=== PATIENT | male | born 1985 | race Caucasian/White ===

== ENCOUNTER 2019-09-16 17:49 | Observation (INO) | payer OTHER ==
[2019-09-16 20:35] LABS: Urine Blood NEGATIVE (NEG); Urine Glucose NEGATIVE (NEG); Urine Protein NEGATIVE (NEG); Urine pH 5.5 (5.0-7.0)
[2019-09-16 20:41] LABS: Absolute Lymphocytes (CBC) 2.7 K/uL (0.7-4.9); Basophils % 0.5 % (0-1.3); Hematocrit 45.3 % (39.6-49.0); Lymphocytes % 30.8 % (15.3-44.8); MPV 8.4 fL (7.6-11.3); RBC Red Blood Cell Count 5.47 M/uL (4.33-5.43)
[2019-09-16 20:57] LABS: ALT/SGPT 49 U/L (12-78); AST/SGOT 18 U/L (15-37); Albumin 3.8 g/dL (3.4-5.0); Alkaline Phosphatase 96 U/L (45-117); BUN Blood Urea Nitrogen 10 mg/dL (7-18); Bicarbonate 26 mmol/L (21-32); Bilirubin Direct < 0.1 mg/dL (0-0.2); Bilirubin Total 0.2 mg/dL (0.2-1.0); Glucose Level 87 mg/dL (74-106); Lipase 139 U/L (73-393); Protein, Total 7.3 g/dL (6.4-8.2); Sodium Level 140 mmol/L (136-145)
--- NOTE | 2019-09-16 22:38 | ER ---
Nurse's Notes [facility] Name: Alin Bonilla Age: 34 yrs Sex: Male : 1985 Arrival Date: 09/16/2019 Time: 17:53 Bed 5 Private MD: Diagnosis: Acute appendicitis with localized peritonitis Presentation: 09/16 18:04 Presenting complaint: Patient states: Abdominal pain since 5 days ago. More on the RLQ. ca1 Denies N/V,Urinary symptoms. Had diarrhea on Monday but went away. Denies fever. Transition of care: patient was not received from another setting of care. Onset of symptoms was September 16, 2019. Risk Assessment: Do you want to hurt yourself or someone else? Patient reports no desire to harm self or others. Initial Sepsis Screen: Does the patient meet any 2 criteria? No. Patient's initial sepsis screen is negative. Does the patient have a suspected source of infection? No. Patient's initial sepsis screen is negative. Care prior to arrival: None. 18:04 Method Of Arrival: Ambulatory ca1 18:04 Acuity: SVETLANA 3 ca1 Historical: - Allergies: 18:07 No Known Allergies; ca1 - Home Meds: 18:07 None [Active]; ca1 - PMHx: 18:07 None; ca1 - PSHx: 18:07 L wrist; ca1 - Immunization history:: Adult Immunizations not up to date, Flu vaccine is not up to date. - Coronavirus screen:: The patient has NOT traveled to [place], [place], or [place] in the past 14 days. The patient has NOT had contact with known/suspected case of Coronavirus?. - Social history:: Smoking status: Patient reports the use of cigarette tobacco products, smokes one-half pack cigarettes per day. - Ebola Screening: : Patient negative for fever greater than or equal to 101.5 degrees Fahrenheit, and additional compatible Ebola Virus Disease symptoms Patient denies exposure to infectious person Patient denies travel to an Ebola-affected area in the 21 days before illness onset No symptoms or risks identified at this time. Screenin:30 Abuse screen: Denies threats or abuse. Denies injuries from another. Nutritional aa1 screening: No deficits noted. Tuberculosis screening: No symptoms or risk factors identified. Fall Risk None identified. Assessment: 20:30 General: Appears in no apparent distress. comfortable, Behavior is calm, cooperative, aa1 appropriate for age. Pain: Complains of pain in right lower quadrant Pain began 5 days ago Is intermittent. Neuro: Level of Consciousness is awake, alert, obeys commands, Oriented to person, place, time, situation, Moves all extremities. Full function Gait is steady, Speech is normal. Cardiovascular: Heart tones S1 S2 present Rhythm is regular. Respiratory: Airway is patent Respiratory effort is even, unlabored, Respiratory pattern is regular, symmetrical. GI: Abdomen is non-distended, Bowel sounds present X 4 quads. Abd is soft X 4 quads Abdomen is tender to palpation in right lower quadrant Reports diarrhea. : No signs and/or symptoms were reported regarding the genitourinary system. EENT: No signs and/or symptoms were reported regarding the EENT system. Derm: Skin is intact, is healthy with good turgor, Skin is pink, warm \T\ dry. Musculoskeletal: Circulation, motion, and sensation intact. Capillary refill < 3 seconds. 21:40 Reassessment: Patient appears in no apparent distress at this time. Patient and/or aa1 family updated on plan of care and expected duration. Pain level reassessed. Patient is alert, oriented x 3, equal unlabored respirations, skin warm/dry/pink. Awaiting CT results. 22:30 Reassessment: Patient appears in no apparent distress at this time. Patient and/or aa1 family updated on plan of care and expected duration. Pain level reassessed. Patient is alert, oriented x 3, equal unlabored respirations, skin warm/dry/pink. Awaiting provider reassessment. 23:38 Reassessment: Patient appears in no apparent distress at this time. Patient and/or aa1 family updated on plan of care and expected duration. Pain level reassessed. Patient is alert, oriented x 3, equal unlabored respirations, skin warm/dry/pink. Pt to be admitted to room 411. Report called to GUILLERMO Vinson on 4th floor. 23:58 Reassessment: Patient appears in no apparent distress at this time. Patient is alert, aa1 oriented x 3, equal unlabored respirations, skin warm/dry/pink. Pt to be admitted at this time. Vital Signs: 18:07 BP 146 / 79; Pulse 91; Resp 19 S; Temp 98.6(O); Pulse Ox 97% on R/A; Weight 122.47 kg ca1 (R); Height 6 ft. 4 in. (193.04 cm) (R); Pain 3/10; 20:53 BP 126 / 80; Pulse 79; Resp 18; Pulse Ox 97% on R/A; Pain 3/10; aa1 21:40 BP 133 / 79; Pulse 70; Resp 16; Pulse Ox 95% on R/A; aa1 22:30 BP 127 / 84; Pulse 70; Resp 16; Pulse Ox 96% on R/A; Pain 3/10; aa1 23:30 BP 132 / 69; Pulse 75; Resp 18; Temp 98.4; Pulse Ox 96% on R/A; Pain 3/10; aa1 18:07 Body Mass Index 32.87 (122.47 kg, 193.04 cm) ca1 ED Course: 17:53 Patient arrived in ED. rg4 18:06 Triage completed. ca1 18:07 Arm band placed on right wrist. ca1 19:26 Tyree Montiel MD is Attending Physician. tw4 20:15 Fátima Davis, GUILLERMO is Primary Nurse. aa1 20:30 Patient has correct armband on for positive identification. Placed in gown. Bed in low aa1 position. Call light in reach. Pulse ox on. NIBP on. 20:31 Inserted saline lock: 20 gauge in right forearm, using aseptic technique. Blood mt collected. 22:36 Arturo Gary MD is Hospitalizing Provider. tw4 23:32 No provider procedures requiring assistance completed. Patient admitted, IV remains in aa1 place. Administered Medications: 09/17 00:11 CANCELLED (pt already transported to 4th floor; to be given upstairs): Zosyn 3.375 aa1 grams IVPB once over 60 mins; (mix in NS 100 mL) Outcome: 09/16 22:37 Decision to Hospitalize by Provider. tw4 23:58 Admitted to Med/surg accompanied by tech, family with patient, via wheelchair, room aa1 411, with chart, Report called to GUILLERMO Vinson 23:58 Condition: good 23:58 Instructed on the need for admit, Demonstrated understanding of instructions. 23:58 Patient left the ED. aa1 Signatures: Fátima Davis RN RN aa1 Valencia Pena rg4 Nelia Palacios mt, Terrence, MD MD tw4 Kathleen Carias RN RN ca1 Corrections: (The following items were deleted from the chart) 21:50 Initial lab(s) drawn, by ED staff, sent to lab. aa1 21:50 EKG done, by ED staff, reviewed by Tyree Montiel MD aa1 aa 21:40 Reassessment: Patient appears in no apparent distress at this time. Patient aa1 and/or family updated on plan of care and expected duration. Pain level reassessed. Patient is alert/active/playful, equal unlabored respirations, skin warm/dry/pink. Awaiting CT results aa1 22:30 Reassessment: Patient appears in no apparent distress at this time. Patient aa1 and/or family updated on plan of care and expected duration. Pain level reassessed. Patient is alert/active/playful, equal unlabored respirations, skin warm/dry/pink. Awaiting provider reassessment aa1 09/17 00:12 00:12 Patient left the ED. aa1 aa1
--- NOTE | 2019-09-16 22:38 | EDPHYS ---
Physician Documentation [facility] Name: Alin Bonilla Age: 34 yrs Sex: Male : 1985 Arrival Date: 09/16/2019 Time: 17:53 Bed 5 Private MD: ED Physician Tyree Montiel HPI: 09/17 04:32 This 34 yrs old Male presents to ER via Ambulatory with complaints of tw4 Abdominal Pain. 04:32 The patient presents with abdominal pain. tw4 Historical: - Allergies: 09/16 18:07 No Known Allergies; ca1 - Home Meds: 18:07 None [Active]; ca1 - PMHx: 18:07 None; ca1 - PSHx: 18:07 L wrist; ca1 - Immunization history:: Adult Immunizations not up to date, Flu vaccine is not up to date. - Coronavirus screen:: The patient has NOT traveled to [place], [place], or [place] in the past 14 days. The patient has NOT had contact with known/suspected case of Coronavirus?. - Social history:: Smoking status: Patient reports the use of cigarette tobacco products, smokes one-half pack cigarettes per day. - Ebola Screening: : Patient negative for fever greater than or equal to 101.5 degrees Fahrenheit, and additional compatible Ebola Virus Disease symptoms Patient denies exposure to infectious person Patient denies travel to an Ebola-affected area in the 21 days before illness onset No symptoms or risks identified at this time. Vital Signs: 18:07 BP 146 / 79; Pulse 91; Resp 19 S; Temp 98.6(O); Pulse Ox 97% on R/A; Weight 122.47 kg ca1 (R); Height 6 ft. 4 in. (193.04 cm) (R); Pain 3/10; 20:53 BP 126 / 80; Pulse 79; Resp 18; Pulse Ox 97% on R/A; Pain 3/10; aa1 21:40 BP 133 / 79; Pulse 70; Resp 16; Pulse Ox 95% on R/A; aa1 22:30 BP 127 / 84; Pulse 70; Resp 16; Pulse Ox 96% on R/A; Pain 3/10; aa1 23:30 BP 132 / 69; Pulse 75; Resp 18; Temp 98.4; Pulse Ox 96% on R/A; Pain 3/10; aa1 18:07 Body Mass Index 32.87 (122.47 kg, 193.04 cm) ca1 MDM: 20:29 Patient medically screened. tw4 09/16 20:25 Order name: Urine Dipstick--Ancillary (enter results) mw2 09/16 20:35 Order name: Urine Dipstick-Ancillary EDNY 09/16 20:36 Order name: CT Abd/Pelvis - IV Contrast Only tw4 09/16 20:45 Order name: CBC with Automated Diff EDMS 09/16 20:53 Order name: Creatinine (Radiology Only) EDMS 09/16 20:57 Order name: Basic Metabolic Panel EDMS 09/16 20:57 Order name: Liver (Hepatic) Function EDMS 09/16 20:57 Order name: Lipase EDMS 09/16 19:26 Order name: IV Saline Lock; Complete Time: 20:31 tw4 09/16 19:26 Order name: Labs collected and sent; Complete Time: 20:31 tw4 Administered Medications: 09/17 00:11 CANCELLED (pt already transported to 4th floor; to be given upstairs): Zosyn 3.375 aa1 grams IVPB once over 60 mins; (mix in NS 100 mL) Disposition: 09/16/19 22:37 Hospitalization ordered by Arturo Gary for Inpatient Admission. Preliminary diagnosis is Acute appendicitis with localized peritonitis. - Bed requested for Telemetry/MedSurg (Inpatient). - Status is Inpatient Admission. aa1 - Condition is Stable. - Problem is new. - Symptoms have improved. Signatures: [facility] Fátima Davis RN RN aa1 Juliann Pena RN RN Tyree Montiel MD MD tw4 Kathleen Carias RN RN ca1 Corrections: (The following items were deleted from the chart) 09/16 23:22 22:37 Hospitalization Ordered by Arturo Gary MD for Inpatient Admission. Preliminary diagnosis is Acute appendicitis with localized peritonitis. Bed requested for Telemetry/MedSurg (Inpatient). Status is Inpatient Admission. Condition is Stable. Problem is new. Symptoms have improved. tw4 09/17 00:11 00:01 Zosyn 3.375 grams IVPB once over 60 mins; (mix in NS 100 mL) ordered. tw4 aa1 00:12 09/16 23:22 09/16/2019 22:37 Hospitalization Ordered by Arturo Gary MD for Inpatient aa1 Admission. Preliminary diagnosis is Acute appendicitis with localized peritonitis. Bed requested for Telemetry/MedSurg (Inpatient). Status is Inpatient Admission. Condition is Stable. Problem is new. Symptoms have improved. cg
[2019-09-16] MEDS ORDERED: MORPHINE 4 MG/ML SYR IV PRN (23:04)
[2019-09-16] MEDS ORDERED: NA CHLORIDE 0.9% 1,000 ML IV SCH (23:45)
[2019-09-17 00:23] VITALS: BMI 33.7
--- NOTE | 2019-09-17 06:53 | P.HP ---
Date of Service: 09/17/19 PC: This 34-year-old male presented to the emergency room with severe right lower quadrant abdominal pain for diagnosis and treatment. HPC: Patient has been experiencing pain in his lower abdomen since last . Pain was gradual but he has got to the point were he could no longer stand it. Her story tries to walk. PMH: Negative PSHx: Negative SOC: No known allergies SYS REVIEW: No cough, wheeze, shortness of breath. No chest pain or palpitations. No urinary complaints. Works at almost every day. O/E awake alert stable HEENT: Not jaundiced Chest: Air entry equal bilaterally ABD: Tender with guarding in the right lower quadrant LOCO: Intact DATA: White cell count 8000, CT scan demonstrates acute appendicitis IMPRESSION: Acute abdomen with appendicitis PLAN: I will take him the operating room for laparoscopic possible open appendectomy. The risks of this procedure have been discussed. The possibility of bleeding, infection, injury to bowel blood vessels and surrounding structures was outlined. He understands and wants us to proceed.
[2019-09-17] MEDS ORDERED: propofoL 200 MG/20 ML VIAL IV ONE ×2 (06:55→07:04)
[2019-09-17] MEDS ORDERED: Ringers Lactate 1,000 ML IV ONE (06:56)
[2019-09-17] MEDS ORDERED: KETAMINE HCL 500 MG/5 ML VIAL ONE (06:57)
[2019-09-17] MEDS ORDERED: LIDOCAINE 2% MPF 5 ML VIAL ONE ×2 (06:58)
[2019-09-17] MEDS ORDERED: MIDAZOLAM HCL 2 MG/2 ML INJ ONE (06:59)
[2019-09-17] MEDS ORDERED: FENTANYL CITR 250 MCG/5 ML ONE (06:59)
[2019-09-17] MEDS ORDERED: ROCURONIUM 50 MG/5 ML VIAL IV ONE (07:00)
[2019-09-17] MEDS ORDERED: ONDANSETRON 4 MG/2 ML VIAL ONE ×2 (07:03→08:30)
[2019-09-17] MEDS ORDERED: NEOSTIGMINE 1 MG/ML -5 ML ONE (07:03)
[2019-09-17] MEDS ORDERED: GLYCOPYRROLATE 0.2 MG/ML SYR ONE (07:04)
[2019-09-17] MEDS ORDERED: SUCCINYLCHOLINE 20 MG/ML (10 ML) IV ONE (07:15)
[2019-09-17] MEDS ORDERED: PIPER/TAZO/NS 3.375gm 3.375 GM/100 ML BAG IV ONE (07:15)
--- NOTE | 2019-09-17 08:12 | P.OP ---
Preoperative diagnosis: Acute abdomen Postoperative diagnosis: Acute appendicitis Primary procedure: Laparoscopic appendectomy Anesthesia: General Estimated blood loss: Less than 10 cc Specimen: 1 appendix Operative Technique: The patient brought the operating room placed supine on the table general endotracheal anesthesia, there the abdomen was prepped with a DuraPrep solution , and he was draped in usual aseptic manner. Subumbilical incision was made. This brought down through the skin and subcutaneous tissue. The Visiport was now used to enter the peritoneal cavity and created pneumoperitoneum to approximately 12 mm of mercury. Under direct vision a 5 mm trocar was placed in the lower midline and another in the right upper quadrant we were now able to visualize the peritoneal cavity. The patient was placed in reverse Trendelenburg and rolled to the left. In the right lower quadrant. The appendix was visualize. It was markedly adherent and inflamed. It was stuck to the anterior abdominal wall in the right lower quadrant. There was omentum surrounding it. A grasper was placed on the mesentery of the appendix. The omentum was grafts in gently dissected off of the inflamed appendix. The junction of the appendix with the cecum was identified. An opening was made in the mesentery of the appendix just at this point. The linear Stapler was now introduced after having converted the 10 mm trocar site to a 12. The insert was positioned across the base of the appendix and fired. Adequate hemostasis was ensured with using judicious electro cautery. Attention was now turned towards the mesentery of the appendix. A crushing hemostat was placed across this. The linear Stapler was now introduced into the peritoneal cavity, placed across this line that had been created at the mesentery of the appendix. The instrument was fired. The appendix was now detached. It was placed in an Endo-Catch and brought out through the umbilical trocar site. The operative site was inspected to ensure adequate hemostasis. Gentle irrigation was done until the effluent was clear. This was aspirated from the peritoneal cavity. At this point the position patient was returned to the neutral position on the OR table. The umbilical trocar site was approximated using the Endo Close an absorbable suture. The pneumoperitoneum was now collapsed, the trocars removed, and michael applied to the skin. These areas were blocked again with 0.25% Marcaine. At the end of the procedure he was stable when sent to the recovery room. Needle sponge instrument count were correct. No drains were placed. Complications: None Transferred to: Recovery Room Condition: Good
[2019-09-17] MEDS ORDERED: ONDANSETRON 4 MG/2 ML VIAL IV PRN (08:16)
[2019-09-17] MEDS: HYDROMORPHONE HCL 1 MG/ML INJ ONE ×2 (08:27→08:38)
[2019-09-17 08:54] VITALS: O2SAT 96
[2019-09-17] MEDS ORDERED: Ringers Lactate 1,000 ML IV SCH (09:00)
[2019-09-17] MEDS: HYDROCODONE/APAP 7.5/325 MG TAB PO PRN ×2 (09:22→15:29)
--- NOTE | 2019-09-17 10:00 | RAD REPORT ---
EXAM DESCRIPTION: CT ABDOMEN PELVIS WITH IV CONTRAST CLINICAL HISTORY: Right lower quadrant pain. COMPARISON: None. TECHNIQUE: CT scan of the abdomen and pelvis was performed with IV contrast. This exam was performed according to our departmental dose-optimization program, which includes automated exposure control, adjustment of the mA and/or kV according to patient size and/or use of iterative reconstruction techn ique. FINDINGS: The lung bases are clear. No pleural or pericardial effusions. There is no hiatal hernia. Punctate splenic granulomas are seen. The liver, pancreas, gallbladder, adrenal glands, and kidneys a re unremarkable. No urinary stones are seen. The pelvic organs are also unremarkable. The appendix is dilated and fluid-filled with surrounding inflammatory stranding, measuring up to 9 m m. No free air or abscess is seen. There is surrounding prominent lymph nodes likely reactive. The re mainder of the small and large bowel are unremarkable. The aorta is normal caliber. No acute bony findings are seen. There is no pathologic body wall hernia . IMPRESSION: Findings consistent with acute appendicitis without perforation or abscess. Electronically signed by: Alex Capone MD 09/16/2019 9:56 PM INFORMATION SUPPORT PROJECT MANAGER Due to temporary technical issues with the PACS/Fluency reporting system, reports are being signed by the in house radiologist as a courtesy to ensure prompt reporting. The interpreting radiologist is f ully responsible for the content of the report.
[2019-09-17 12:21] VITALS: BP 132/62; TEMP 97
== END 2019-09-17 16:00 | disposition home or self-care (01) ==
LOC: ER 17:49 → INTOOBSV 23:03 → ERHOLD 23:03 → 4TH 23:51
PROVIDERS: ADMIT Surgery; ATTEND Surgery
PROC: 0DTJ4ZZ Resection of Appendix, Percutaneous Endoscopic Approach (ICD-10-PCS; principal; 2019-09-17 07:00)
DX: K35.80 Unspecified acute appendicitis (principal)
CPT/HCPCS: 44970; 85025; 80048; 36415; 80076; 88304; 81003; 83690; 74177; 99285; Q9967; J2704 ×2; J0330; J2250; J3010; J2543; J1170; J2710; G0378 ×3; J7120 ×2; J7030; J2405 ×2